=== PATIENT | female | born 1995 ===

== ENCOUNTER 2018-04-10 20:57 | Emergency (ER) | payer MEDICAID ==
[2018-04-10 20:57] VITALS: BMI 30.6
[2018-04-10 22:20] VITALS: RESP 16; O2SAT 100
--- NOTE | 2018-04-10 22:36 | ED PDOC ---
HPI: Influenza Time Seen by Provider: 04/10/18 22:33 Chief Complaint: Flu-like Symptoms Chief Complaint (Provider): Abdominal Pain History Per: Patient Exam Limitations: no limitations Have you had recent travel within the past 21 days to any of: No Risk factors for flu complications: Yes: (Pt presents to the ED complaining of flu like symptoms for which she has had for a week or so and was treated several weeks prior with tamiflu. Pt also indicates that she has right sided pelvic pain for one day; pt denies vaginal bleeding, nausea, vominting or diarrhea as well as denies fever) Past Medical History Reviewed: Historical Data, Nursing Documentation, Vital Signs Vital Signs: Last Vital Signs Temp 98.5 F 04/10/18 22: Pulse 104 H 04/10/18 22:19 Resp 16 04/10/18 22:19 BP 108/74 04/10/18 22: Pulse Ox 100 04/10/18 22:19 - Medical History PMH: Denies: Depression, Chronic Kidney Disease - Surgical History Surgical History: Tonsillectomy - Family History Family History: States: Unknown Family Hx - Home Medications Home Medications: Ambulatory Orders Medication Instructions Recorded Ibuprofen [Motrin Ib] 600 mg PO Q6 #30 tablet 11/03/17 oxyCODONE/Acetaminophen 1/2TAB 0.5 ea PO Q4 PRN #20 tab 11/03/17 [Percocet 5-325 mg HALF TAB] Oseltamivir Phosphate [Tamiflu] 75 mg PO BID #10 capsule 04/11/18 - Allergies Allergies/Adverse Reactions: Allergies Allergy/AdvReac Type Severity Reaction Status Date / Time No Known Allergies Allergy Verified 11/01/17 21:58 Review of Systems ROS Statement: Except As Marked, All Systems Reviewed And Found Negative Constitutional: Negative for: Fever Respiratory: Negative for: Cough Gastrointestinal: Positive for: Abdominal Pain. Negative for: Nausea, Vomiting Physical Exam - Reviewed Nursing Documentation Reviewed: Yes Vital Signs Reviewed: Yes - Physical Exam Appears: Positive for: Well, Non-toxic, No Acute Distress. Negative for: Uncomfortable Head Exam: Positive for: ATRAUMATIC, NORMAL INSPECTION Skin: Positive for: Normal Color, Warm, Dry. Negative for: Diaphoresis, Pallor, Rash Eye Exam: Positive for: Normal appearance, PERRL. Negative for: Nystagmus, Periorbital swelling, Periorbital tenderness Neck: Positive for: Normal, Painless ROM, Supple. Negative for: Decreased ROM Cardiovascular/Chest: Positive for: Regular Rate, Rhythm. Negative for: Chest Non Tender, Edema, Gallop, Murmur, Bradycardia, Tachycardia Respiratory: Positive for: Normal Breath Sounds. Negative for: Decreased Breath Sounds, Accessory Muscle Use, Crackles, Rales, Rhonchi, Stridor, Wheezing, Respiratory Distress Pulses-Carotid (L): 2+ Pulses-Carotid (R): 2+ Pulses-Radial (L): 2+ Pulses-Radial (R): 2+ Gastrointestinal/Abdominal: Positive for: Normal Exam, Bowel Sounds (active in all quadrants), Soft, Tenderness (RLQ tenderness to palpation at mcburney point; valera sign negative; rovsing and merckle sign negative). Negative for: Distended, Guarding, Rebound Back: Positive for: Normal Inspection. Negative for: L CVA Tenderness, R CVA Tenderness - ECG O2 Sat by Pulse Oximetry: 100 Disposition - Clinical Impression Clinical Impression: Influenza - Disposition Disposition: Routine/Home Disposition Time: 00:39 Condition: STABLE Additional Instructions: Follow up with your [facility] in 3-4 days Prescriptions: Oseltamivir Phosphate [Tamiflu] 75 mg PO BID #10 capsule Instructions: Flu, Flu, Adult (DC) Forms: [facility] (Korean)
[2018-04-11 00:39] VITALS: BP 110/77; PULSE 90; TEMP 98.8
--- NOTE | 2018-04-11 11:38 | US ---
Date of service: 04/10/2018 PROCEDURE: First trimester ultrasound HISTORY: pelvic pain COMPARISON: None TECHNIQUE: Standard protocol for this study/examination. FINDINGS: LMP: 03/01/2018 Prior examinations from the current : None TECHNIQUE: Real-time 2D imaging, duplex and color Doppler. FINDINGS: pole: Absent Gestational age 5 weeks 1 day based on gestational sac measurement 1.07 cm Gestational age derived from LMP: 5 weeks 5 days MIHAI based on LMP: 12/06/2018 MIHAI based on biometry: 12/10/2018 Gestational concordance documented Yolk sac identified Cervix: No Cervical abnormalities: Negative examination for cervical dilatation or effacement. Closed cervix measuring 2.7 cm Subchorionic hemorrhage: None UTERUS: 4.6 x 5.6 x 8.5 cm. ADNEXA: Right: 1 x 1.4 x 2.6 cm. Normal Doppler arterial waveform documented. Left: 2.6 x 1.8 x 1.8 cm. Normal Doppler arterial waveform documented Fluid in the cul-de-sac: None IMPRESSION: Five weeks 1 day intrauterine gestation. Gestational concordance documented. The absence of pole is consistent with early gestational age. Concordant findings (preliminary report) provided by [facility].
== END 2018-04-11 00:37 | disposition home or self-care (01) ==
LOC: H.ER 20:57
DX: J11.1 Influenza due to unidentified influenza virus with other respiratory manifestations (principal); O98.519 Other viral diseases complicating pregnancy, unspecified trimester